=== PATIENT | female | born 1960 | race African-American/Black ===

== ENCOUNTER 2017-12-20 07:16 | Day surgery (SDC) | payer BC ==
[~2017-12-20] VITALS: Ht 167.6 cm; Wt 59.9 kg
[2017-12-20] VITALS (10 sets, daily range): BP systolic 93–109; BP diastolic 57–67
[2017-12-20] MEDS ORDERED: NKM (07:57)
[2017-12-20] MEDS ORDERED: Propofol 200mg/20ml IV ONE (08:00)
[2017-12-20] MEDS ORDERED: fentaNYL 100 mcg/2 mL IV ONE (08:00)
[2017-12-20] MEDS ORDERED: LR 1000ml ONE (08:00)
[2017-12-20] MEDS ORDERED: Midazolam 2mg/2ml Inj ONE (08:00)
--- NOTE | 2017-12-20 08:02 | Short Stay Surgery H&P ---
History of Present Illness History of Present Illness Chief Complaint see typed H&P HPI So López is a 57 year old female who was admitted on for Screening Patient History Allergies: Coded Allergies: No Known Allergies (Unverified , 12/20/17) Medication History Scheduled No Known Medications* (NKM - No Known Medications*), 0 ., (Reported) Physical Exam Vital Signs Last Vital Signs Date Time Temp Pulse Resp B/P (MAP) Pulse Ox O2 Delivery O2 Flow Rate FiO2 12/20/17 07:46 97.9 75 18 97/57 (70) 98 97.9 12/20/17 07:45 Room Air Plan Attestation Are the patient's medical conditions optimized for surgery? Mary Jaramillo MD Dec 20, 2017 08:02
--- NOTE | 2017-12-20 08:02 | Pre-Procedure Note/Attestation ---
Pre-Procedure Note/Attestation Complete Prior to Procedure Planned Procedure: not applicable Procedure Narrative: colon Indications for Procedure Pre-Operative Diagnosis: screen Attestation I attest that I discussed the nature of the procedure; its benefits; risks and complications; and alternatives (and the risks and benefits of such alternatives ), prior to the procedure, with the patient (or the patient's legal licensing representative). I attest that, if there was a reasonable possibility of needing a blood transfusion, the patient (or the patient's legal licensing representative) was given the [facility] standardized written summary, pursuant to the Eladio Cleopatra Blood Safety Act ([place] Health and Safety Code # 1645, as amended). I attest that I re-evaluated the patient just prior to the surgery and that there has been no change in the patient's H&P, except as documented below: Mary Jaramillo MD Dec 20, 2017 08:02
[2017-12-20] MEDS ORDERED: LR 1000ml 1,000 ML IVLG SCH (08:07)
--- NOTE | 2017-12-20 08:07 | Anethesia Preoperative Eval ---
Anesthesia Pre-op PMH/ROS General Date of Evaluation: Dec 20, 2017 Time of Evaluation: 07:57 Anesthesiologist: Samia ASA Score: ASA 2 Mallampati Score Class I : Soft palate, uvula, fauces, pillars visible Class II: Soft palate, uvula, fauces visible Class III: Soft palate, base of uvula visible Class IV: Only hard plate visible Mallampati Classification: Class II Surgeon: Che Diagnosis: Colon CA screening Surgical Procedure: Colonoscopy Anesthesia History: none Family History: no anesthesia problems Allergies: Coded Allergies: No Known Allergies (Unverified , 12/20/17) Medications: see eMAR Past Medical History Cardiovascular: Denies: HTN, CAD, [place], valve dz, arrhythmia, other Pulmonary: Denies: asthma, COPD, RORO, other Gastrointestinal/Genitourinary: Reports: GERD - mild; Denies: CRI, ESRD, other Neurologic/Psychiatric: Denies: dementia, CVA, depression/anxiety, TIA, other Endocrine: Denies: DM, hypothyroidism, steroids, other HEENT: Denies: cataract (L), cataract (R), glaucoma, [place] (L), [place] (R), other Hematology/Immune: Denies: anemia, DVT, bleeding disorder, other Musculoskeletal/Integumentary: Denies: OA, RA, DJD, DDD, edema, other PMH Narrative: as above PSxH Narrative: Dental Anesthesia Pre-op Phys. Exam Physician Exam Last Vital Signs Date Time Temp Pulse Resp B/P (MAP) Pulse Ox O2 Delivery O2 Flow Rate FiO2 12/20/17 07:46 97.9 75 18 97/57 (70) 98 97.9 12/20/17 07:45 Room Air Constitutional: NAD Neurologic: CN 2-12 intact Cardiovascular: RRR, no M/R/G Respiratory: CTA Gastrointestinal: S/NT/ND Airway Exam Mallampati Score: Class II MO: full Neck: flexible ROM: full Teeth: intact Dentures: no upper, no lower Anesthesia Pre-op A/P Labs see chart Studies Pre-op Studies: EKG - SR Risk Assessment & Plan Assessment: ASA 2 Plan: MAC Status Change Before Surgery: No Pre-Antibiotics Drug: none Se Gracia MD Dec 20, 2017 08:07
[2017-12-20] MEDS ORDERED: fentaNYL 100 mcg/2 mL IV PRN (08:15)
--- NOTE | 2017-12-20 08:32 | Endoscopy Procedure Note ---
Endoscopy Procedure Note General Indication for Procedure: screening Procedures Performed: colonoscopy Operative Findings/Diagnosis: mucosal reticular pattern on IC valve, biopsied Specimen: yes Pt Tolerated Procedure Well: Yes Estimated Blood Loss: none Anesthesia Anesthesiologist: Elzbieta Anesthesia: MAC Medications Medication Given: see anesthesia record Inserted Devices Implant(s) used?: No GI Core Measures 50 yrs or older w/o bx or poly: No 10yrs. F/U not recommended: Yes If not recommended, why?: 10 yrs. F/U needed: Yes 18 years or older w/prev. colo: No <3yrs. since last colonoscopy: No Med reason:<3 yrs.: System Reason:<3 yrs.: Last colonoscopy >= to 3yrs: Yes Mary Jaramilol MD Dec 20, 2017 08:32
--- NOTE | 2017-12-20 08:34 | Brief Operative Note ---
Immediate Post Operative Note Operative Note Chief Complaint: screen Pre-op Diagnosis: screen Procedure: colon/Bx Post-op Diagnosis: reticular IC valve, biopsied Post-op Diagnosis: same as pre-op plus Surgeon: jasmin Anesthesiologist: Samia Anesthesia: MAC Specimen: yes Complications: none Condition: stable Fluids: recorded Estimated Blood Loss: none Drains: none Implant(s) used?: No Mary Jaramillo MD Dec 20, 2017 08:34
--- NOTE | 2017-12-20 08:38 | Immediate Post-Op Evaluation ---
Immediate Post-Op Evalulation Immediate Post-Op Evalulation Procedure: Colonoscopy Date of Evaluation: Dec 20, 2017 Time of Evaluation: 08:37 IV Fluids: 300 Blood Products: none Estimated Blood Loss: none Urinary Output: none Blood Pressure Systolic: 102 Blood Pressure Diastolic: 56 Pulse Rate: 62 Respiratory Rate: 20 O2 Sat by Pulse Oximetry: 99 Temperature (Fahrenheit): 97.6 Pain Score (1-10): 1 Nausea: No Vomiting: No Complications none Patient Status: awake, patent, none Hydration Status: adequate Se Gracia MD Dec 20, 2017 08:38
--- NOTE | 2017-12-20 08:57 | 48 Hour Post Anesthesia Eval ---
Post Anesthesia Evaluation Procedure: Colonoscopy Date of Evaluation: Dec 20, 2017 Time of Evaluation: 08:55 Blood Pressure Systolic: 102 0: 61 Pulse Rate: 64 Respiratory Rate: 20 Temperature (Fahrenheit): 97.8 O2 Sat by Pulse Oximetry: 99 Airway: patent Nausea: No Vomiting: No Pain Intensity: 1 Hydration Status: adequate Cardiopulmonary Status: stable Mental Status/LOC: patient returned to baseline Follow-up Care/Observations: n/a Post-Anesthesia Complications: none Follow-up care needed: ready to discharge Se Gracia MD Dec 20, 2017 08:57
--- NOTE | 2017-12-20 16:45 | Procedure Note ---
DATE OF PROCEDURE: 12/20/2017 GASTROLOGY PROCEDURE REPORT PROCEDURE: Screening colonoscopy with biopsy. SURGEON: Mary Jaramillo M.D. ANESTHESIA: Please see the separate anesthesiologist notes for details. ANESTHESIOLOGIST: Se Gracia M.D. PRE-ENDOSCOPIC DIAGNOSIS: Screening colonoscopy. POST-ENDOSCOPIC DIAGNOSIS: Mild reticular mucosal pattern on IC valve, biopsied to rule out adenoma. DESCRIPTION OF PROCEDURE: The procedure, its risks, indications, alternatives, and possible complications including, but not limited to bleeding, infection, perforation, , and anesthesia complications were explained to the patient and informed consent was obtained. The patient was then sedated in the left lateral decubitus position and a rectal exam was done. The colonoscope was then introduced into the rectum and advanced 5 cm into the terminal ileum without difficulty. The colonoscope was then gradually withdrawn and the mucosa was examined carefully. Examination of the colonic mucosa did not reveal any polyps or diverticulosis. The terminal ileum was normal to the length examined. The ileocecal valve appeared to have some reticular pattern of the mucosa and this area was biopsied to rule out adenomatous transformation. The colonoscope was removed after retroflexing exam of the rectum was completed and the patient was sent to recovery in good condition. COMPLICATIONS: None. RECOMMENDATIONS: 1. Follow up biopsy results. 2. Outpatient followup. Thank you for asking me to participate in the care of this patient. Mary Jaramillo M.D. DR: ZACHARY JOB#: [id number] CC: Deo Hu M.D. MTDAlicia
== END 2017-12-20 10:40 | disposition home or self-care (01) ==
LOC: GAS 07:16
DX: Z12.11 Encounter for screening for malignant neoplasm of colon (principal); K21.9 Gastro-esophageal reflux disease without esophagitis
CPT/HCPCS: 45380; J2250; J2704; J3010; 94003; 94150